=== PATIENT | male | born 1970 | race Caucasian/White ===

== ENCOUNTER 2022-07-01 21:27 | Emergency (ER) | payer OTHER ==
[~2022-07-01] VITALS: Ht 172.7 cm; Wt 74.8 kg
[2022-07-01 21:41] VITALS: BP 114/78
--- NOTE | 2022-07-01 22:40 | NUR ---
PATIENT DOESNT WANT TO WAIT. PATIENT LEFT WITHOUT BEING SEEN BY . NO FURTHER CARE PROVIDED FOR PATIENT.
== END 2022-07-01 22:40 | disposition left against medical advice (07) ==
LOC: MED 21:27
DX: R53.83 Other fatigue (principal); R20.0 Anesthesia of skin; R53.1 Weakness; Z53.21 Procedure and treatment not carried out due to patient leaving prior to being seen by health care provider